=== PATIENT | male | born 1965 | race Caucasian/White ===

== ENCOUNTER 2019-09-22 18:13 | Emergency (ER) | payer MEDICAID ==
[~2019-09-22] VITALS: Ht 180.3 cm; Wt 120.2 kg
[2019-09-22 19:29] LABS: Basophils # (auto) 0 10 ^3/uL (0-0.2); Basophils % (auto) 0.6 % (0.0-2.0); Eosinophils # (auto) 0.2 10 ^3/uL (0-0.8); Eosinophils % (auto) 3.2 % (0.0-7.0); Hemoglobin 16.6 g/dL (13.5-17.5); Lymphocytes # (auto) 2.3 10 ^3/uL (0.4-5.4); Mean Corpuscular Hgb Conc. 33.8 g/dL (32.0-36.0); Mean Corpuscular Volume 85.9 fL (80.0-100.0); Monocytes # (auto) 0.6 10 ^3/uL (0-1.3); Neutrophils # (auto) 4.1 10 ^3/uL (1.6-8.6); Neutrophils % (auto) 56.2 % (37.0-80.0); Nucleated Red Blood Cells % 0.1 %; Platelet Count (auto) 257 10^3/uL (140-450); Red Blood Cells 5.71 10^6/uL (4.5-5.90); Red Cell Distribution Width 12.9 % (11.8-14.3); White Blood Cell 7.3 10^3/uL (4.4-10.8)
[2019-09-22 19:49] LABS: Albumin 3.8 g/dL (3.4-5.0); Amylase 47 U/L (25-115); Anion Gap 9 (5-15); Blood Urea Nitrogen 17 mg/dL (7-18); Calcium 9.2 mg/dL (8.5-10.1); Carbon Dioxide 27 mmol/L (21-32); Chloride 103 mmol/L (98-107); Glucose 133 mg/dL (74-106); Lipase 129 U/L (73-393); Sodium 139 mmol/L (136-145)
[2019-09-22 19:54] LABS: Alanine Aminotransferase 51 U/L (16-61); Alkaline Phosphatase 55 U/L (45-117); Aspartate Aminotransferase 21 U/L (15-37); BUN/Creatinine Ratio 12.5; Bilirubin, Total 0.7 mg/dL (0.2-1.0); GFR African American 71 mL/min; GFR Non-African American 58 mL/min; Total Protein 7.5 g/dL (6.4-8.2)
[2019-09-22 20:00] LABS: Potassium 2.9 mmol/L (3.5-5.1)
[2019-09-22 20:08] LABS: Urine Bacteria FEW /hpf (None Seen); Urine Blood 1+ /uL (Negative); Urine Mucus FEW (None Seen); Urine Specific Gravity 1.022 (1.001-1.035); Urine WBC 1 /hpf (0 - 3)
[2019-09-22] MEDS ORDERED: POTASSIUM CHL 20 Meq TABLET PO ONE (20:15)
[2019-09-22 20:20] LABS: Amphetamine Screen, Urine NEGATIVE (NEGATIVE); Barbiturate Scree,Urine NEGATIVE (NEGATIVE); Benzodiazephine Screen, Urine NEGATIVE (NEGATIVE); Cannabinoid Screen, Urine POSITIVE (NEGATIVE); Cocaine Screen, Urine NEGATIVE (NEGATIVE); Opiate Scree,Urine NEGATIVE (NEGATIVE); Phencyclidine Screen, Urine NEGATIVE (NEGATIVE)
[2019-09-22] MEDS ORDERED: SODIUM CHLORIDE 0.9% 1,000 ML IV ONE (20:30)
[2019-09-22] MEDS ORDERED: KETOROLAC TROMETH 30 MG/ML 1ML VIAL IV ONE (20:45)
[2019-09-22 22:00] VITALS: BP 130/79
== END 2019-09-22 22:50 | disposition home or self-care (01) ==
LOC: ER 18:15
DX: S39.012A Strain of muscle, fascia and tendon of lower back, initial encounter (principal); N20.0 Calculus of kidney; K42.9 Umbilical hernia without obstruction or gangrene; E87.6 Hypokalemia; I10 Essential (primary) hypertension; E78.5 Hyperlipidemia, unspecified; Z88.5 Allergy status to narcotic agent; Z88.2 Allergy status to sulfonamides; Z88.8 Allergy status to other drugs, medicaments and biological substances; X58.XXXA Exposure to other specified factors, initial encounter; Y93.89 Activity, other specified; Y92.89 Other specified places as the place of occurrence of the external cause; Y99.8 Other external cause status
CPT/HCPCS: 36415; 74176; 80053; 80307; 81001; 82150; 83690; 84484; 85025; 93005; 96374; 99285; J1885; J7030